=== PATIENT | female | born 1955 | race Caucasian/White ===

== ENCOUNTER → 2017-09-19 | Outpatient (CLI) | payer BC ==
[~2017-09-19] MED LIST: ACIPHEX20 MG PO; LASIX40 MG PO; LEVOTHROID0.088 MG PO; POTASSIUM20 MEQ PO; VICO75300 PO; XANAX0.5 MG PO
== END | disposition home or self-care (01) ==
LOC: RAD 11:25
DX: Z13.820 Encounter for screening for osteoporosis (principal); N95.9 Unspecified menopausal and perimenopausal disorder

== ENCOUNTER → 2019-11-22 | Outpatient (CLI) | payer BC | END | disposition home or self-care (01) | LOC: CARD 10-24 09:30 | DX: I47.1 Supraventricular tachycardia (principal) ==

== ENCOUNTER → 2020-08-13 | Outpatient (CLI) | payer BC | END | disposition home or self-care (01) | LOC: COVID19 03:11 | PROVIDERS: ATTEND Internal Medicine | DX: Z20.828 Contact with and (suspected) exposure to other viral communicable diseases (principal) ==

== ENCOUNTER → 2023-08-03 | Outpatient (CLI) | payer OTHER | END | disposition home or self-care (01) | LOC: RAD 11:31 | PROVIDERS: ATTEND Internal Medicine | DX: R07.9 Chest pain, unspecified (principal); R06.02 Shortness of breath; F41.9 Anxiety disorder, unspecified ==

== ENCOUNTER → 2023-09-30 | Outpatient (CLI) | payer OTHER ==
[~2023-09-30] MED LIST changes: +ARMOUR THYROID60 MG PO; +HYDROCODONE-AC1 EAC2 PO; +MELOXICAM7.5 MG PO
== END | disposition home or self-care (01) ==
LOC: CARD 09-29 07:00
PROVIDERS: ATTEND Internal Medicine
DX: I45.10 Unspecified right bundle-branch block (principal); R07.9 Chest pain, unspecified; R06.02 Shortness of breath